=== PATIENT | male | born 1945 | race Caucasian/White ===

== ENCOUNTER → 2023-08-07 | Outpatient (CLI) | payer OTHER ==
[~2023-08-07] MED LIST: REGADENOSON 0.4 MG/5 ML PF SYG IVP ONE
== END | disposition home or self-care (01) ==
LOC: SHCH 09:08
PROVIDERS: ATTEND Internal Medicine Cardiovascular Disease
DX: R07.9 Chest pain, unspecified (principal); I10 Essential (primary) hypertension
CPT/HCPCS: 78452; 96374; 93017; J2785; A9500 ×2

== ENCOUNTER → 2023-09-20 | Outpatient (CLI) | payer OTHER | END | disposition home or self-care (01) | LOC: SHCH 07:43 → EDUNIT# 08:00 | PROVIDERS: ATTEND Internal Medicine Cardiovascular Disease | DX: I35.0 Nonrheumatic aortic (valve) stenosis (principal); I11.9 Hypertensive heart disease without heart failure; R07.9 Chest pain, unspecified | CPT/HCPCS: 93306 ==

== ENCOUNTER 2023-11-15 11:44 | Day surgery (SDC) | payer OTHER ==
[2023-11-13 15:24] LABS: BASOPHILS # (AUTO) 0.02 K/uL (0.00-0.20); BASOPHILS % (AUTO) 0.2 % (0.0-5.0); EOSINOPHILS # (AUTO) 0.15 K/uL (0.00-0.70); EOSINOPHILS % (AUTO) 1.7 % (0.0-8.0); HEMATOCRIT 42.5 % (42-54); IMMATURE GRANULOCYTE ABSOLUTE 0.03 K/uL (0-1); LYMPHOCYTES # (AUTO) 1.2 K/uL (1.0-4.8); LYMPHOCYTES % (AUTO) 14.3 % (21.0-51.0); MEAN CORPUSCULAR HEMOGLOBIN 31.3 pg (27.0-33.0); MEAN CORPUSCULAR HGB CONC 32.5 g/dL (32.0-36.0); MEAN CORPUSCULAR VOLUME 96.4 fL (79-99); MONOCYTES # (AUTO) 0.7 K/uL (0.1-1.0); MONOCYTES % (AUTO) 7.6 % (3.0-13.0); NEUTROPHILS # (AUTO) 6.6 K/uL (1.8-7.7); NEUTROPHILS % (AUTO) 75.9 % (40.0-77.0); PLATELET COUNT (AUTO) 203 K/uL (130-400); RED BLOOD CELL COUNT(AUTO) 4.41 MIL/uL (4.50-6.20); RED CELL DISTRIBUTION WIDTH 13.2 % (11.0-15.5); WHITE BLOOD COUNT (AUTO) 8.7 K/uL (4.8-10.8)
[2023-11-13 15:27] VITALS: BP 124/65; PULSE 77; RESP 18
[2023-11-13 15:41] LABS: POTASSIUM 4.4 mmol/L (3.5-5.1)
[2023-11-13 15:43] LABS: PROTHROMBIN TIME 11.6 SEC (9.6-11.6)
[2023-11-13 15:44] LABS: PARTIAL THROMBOPLASTIN TIME 28.6 SEC (26.3-35.5)
[2023-11-13 15:46] LABS: B-TYPE NATRIURETIC PEPTIDE 92 pg/mL (0-100)
[2023-11-15] VITALS (8 sets, daily range): BP systolic 135–147; BP diastolic 68–84; PULSE 62–83; RESP 15–16
[~2023-11-15] VITALS: Ht 182.9 cm; Wt 100.3 kg
[~2023-11-15 11:44] MED LIST changes: +AEC81 PO; +ATOR40TA69 PO; +CARB1DRO OU; +GLIP5TAB15 PO; +LEVE-43 PO; +LOSA100T59 PO; +METF-446 PO; +MULT-1367 PO; -REGADENOSON 0.4 MG/5 ML PF SYG IVP ONE
[2023-11-15] MEDS ORDERED: 0.9%NACL 1000ML 1,000 ML IV ONE (12:43)
[2023-11-15] MEDS ORDERED: HEPARIN 10,000 UNIT/10ML (1,000 UNIT/ML) VIAL ONE (13:48)
[2023-11-15] MEDS ORDERED: NICARDIPINE 25MG INJ IV ONE (13:48)
[2023-11-15] MEDS ORDERED: NITROGLYCERIN 50MG VIAL ONE (13:48)
[2023-11-15] MEDS ORDERED: IOHEXOL-350 50ML VIAL IV ONE (13:48)
[2023-11-15] MEDS ORDERED: IOHEXOL 350 MG/ML 100ML INFUS..BTL IV ONE (13:48)
[2023-11-15] MEDS ORDERED: LIDOCAINE HCL 400MG/20ML VIAL ONE (13:48)
[2023-11-15] MEDS ORDERED: VERAPAMIL HCL 2.5 MG/ML VIAL ONE (14:08)
[2023-11-15] MEDS ORDERED: FENTANYL CITRATE PF 50 MCG/1 ML 2ML VIAL ONE (14:17)
[2023-11-15] MEDS ORDERED: MIDAZOLAM HCL 1 MG/ML 2ML VIAL ONE (14:18)
[2023-11-15] MEDS ORDERED: 0.9%NACL 1000ML 1,000 ML IV SCH (15:00)
== END 2023-11-15 17:00 | disposition home or self-care (01) ==
LOC: DAH 11:44
PROVIDERS: ATTEND Internal Medicine
DX: I25.10 Atherosclerotic heart disease of native coronary artery without angina pectoris (principal); I10 Essential (primary) hypertension; E78.5 Hyperlipidemia, unspecified; E11.9 Type 2 diabetes mellitus without complications; Z79.01 Long term (current) use of anticoagulants; Z79.899 Other long term (current) drug therapy; Z79.82 Long term (current) use of aspirin; Z79.84 Long term (current) use of oral hypoglycemic drugs; Z98.890 Other specified postprocedural states; Z82.49 Family history of ischemic heart disease and other diseases of the circulatory system
CPT/HCPCS: 80048; 83880; 85025; 85610; 85730; 36415; 71045; 93005; 93458; 82948; C1769; C1894; A4649; J3010; J3490 ×4; J7030; J1644 ×2; J2250; Q9967; A4215; A4222; A4221; A4663; A4216; A4606; Q9965; A4223 ×3; 96360; 96361; 99156; 99157